=== PATIENT | female | born 1965 | race Caucasian/White ===

== ENCOUNTER 2022-12-08 09:06 | Outpatient (RCR) | payer MEDICAID, SELFPAY | END 2022-12-22 16:00 | disposition home or self-care (01) | LOC: HO.WCC 09:06 | PROVIDERS: Visit Provider Surgery | DX: T21.21XA Burn of second degree of chest wall, initial encounter (principal); T20.27XA Burn of second degree of neck, initial encounter; T31.0 Burns involving less than 10% of body surface; X12.XXXA Contact with other hot fluids, initial encounter | CPT/HCPCS: 16020; 16025; 99213 ==